=== PATIENT | male | born 1970 | race Caucasian/White ===

== ENCOUNTER 2025-07-25 22:33 | Observation (INO) | payer BC, SELFPAY ==
[~2025-07-25] VITALS: Ht 175.3 cm; Wt 98.6 kg
[2025-07-25 23:16] LABS: BASO # 0.0 10^3/uL (0.0-0.2); BASO % 0.5 % (0.0-1.0); EOS # 0.3 10^3/uL (0.0-0.5); EOS % 3.8 % (0.0-3.0); LYMPH # 2.1 10^3/uL (1.5-5.0); LYMPH % 26.0 % (24.0-44.0); MONO # 0.7 10^3/uL (0.0-0.8); MONO % 9.0 % (2.0-8.0); NEUTROPHILS # 4.8 10^3/uL (1.5-8.5); NEUTROPHILS % 60.4 % (36.0-66.0); PLATELET COUNT, AUTOMATED 212 10^3/uL (150-450)
[2025-07-25 23:41] LABS: CK-MB VALUE MASS 2.7 NG/ML (<3.6)
[2025-07-25 23:43] LABS: CALCIUM LEVEL 9.0 MG/DL (8.5-10.1); CARBON DIOXIDE LEVEL 27.0 MMOL/L (20-31); CHLORIDE LEVEL 105.0 MMOL/L (98-107); CPK CREATINE PHOSPHOKINASE 156.0 U/L (46-171); CREATININE FOR GFR 1.15 MG/DL (0.70-1.30); GLOMERULAR FILTRATION RATE 75.6 (>56); MB/CK RELATIVE INDEX 1.73 (< OR =4); POTASSIUM SERUM 4.4 MMOL/L (3.5-5.1); SODIUM LEVEL 142.0 MMOL/L (136-145)
[2025-07-26 01:19] LABS: CK-MB VALUE MASS 2.5 NG/ML (<3.6)
[2025-07-26 01:20] LABS: CPK CREATINE PHOSPHOKINASE 142.0 U/L (46-171); MB/CK RELATIVE INDEX 1.76 (< OR =4)
[2025-07-26] MEDS: NS (Normal Saline) 0.9% 1,000 ML IV ONE (01:50)
[2025-07-26] MEDS ORDERED: ISOVUE-370 76% 100 ML VIAL As Ordered ONE (01:51)
[2025-07-26 02:12] LABS: MAGNESIUM LEVEL 2.2 MG/DL (1.8-2.4)
[2025-07-26 04:00] VITALS: TEMP 98.1
[2025-07-26] MEDS ORDERED: MAALOX 30 ML SUSP *UDC PO PRN (05:10)
[2025-07-26] MEDS ORDERED: MOM 30 ML SUSPENSION UDC PO PRN (05:10)
[2025-07-26] MEDS ORDERED: ACETAMINOPHEN 325 MG TAB PO PRN (05:10)
[2025-07-26] MEDS ORDERED: ROSU5TAB49 PO (05:45)
[2025-07-26] MEDS ORDERED: LISI20TA33 PO (05:45)
[2025-07-26] MEDS ORDERED: HOME MED LIST COMPLETE! XX SCH (05:50)
[2025-07-26 06:45] VITALS: BP 102/58; O2SAT 95
[2025-07-26] MEDS ORDERED: DOCUSATE SODIUM 100 MG CAPSULE PO SCH (09:00)
[2025-07-26 10:35] LABS: BASO # 0.0 10^3/uL (0.0-0.2); BASO % 0.4 % (0.0-1.0); EOS # 0.2 10^3/uL (0.0-0.5); EOS % 2.2 % (0.0-3.0); LYMPH # 1.3 10^3/uL (1.5-5.0); LYMPH % 19.0 % (24.0-44.0); MONO # 0.6 10^3/uL (0.0-0.8); MONO % 8.7 % (2.0-8.0); NEUTROPHILS # 4.7 10^3/uL (1.5-8.5); NEUTROPHILS % 69.6 % (36.0-66.0); PLATELET COUNT, AUTOMATED 213 10^3/uL (150-450)
[2025-07-26 10:47] LABS: INR 0.96
[2025-07-26 10:55] LABS: ALT/SGPT 19 U/L (7.0-40); AST/SGOT 17 U/L (<34); CALCIUM LEVEL 9.1 MG/DL (8.5-10.1); CARBON DIOXIDE LEVEL 25 MMOL/L (20-31); CHLORIDE LEVEL 108 MMOL/L (98-107); CREATININE FOR GFR 0.86 MG/DL (0.70-1.30); GLOMERULAR FILTRATION RATE > 90.0 (>56); MAGNESIUM LEVEL 2.2 MG/DL (1.8-2.4); POTASSIUM SERUM 4.5 MMOL/L (3.5-5.1); SODIUM LEVEL 142 MMOL/L (136-145)
[2025-07-26 10:57] LABS: FREE T4 1.23 NG/DL (0.89-1.76); THYROXINE (T4) 6.6 UG/DL (4.5-10.9)
[2025-07-26] MEDS ORDERED: ROSUVASTATIN 10 MG TAB PO SCH (21:00)
== END 2025-07-26 12:45 | disposition home or self-care (01) ==
LOC: M ED 22:33 → M ED INP 22:34 → INTOOBSV 22:34 → UNDODISIN 07-26 12:45
PROVIDERS: ADMIT Student in an Organized Health Care Education/Training Program; ATTEND Student in an Organized Health Care Education/Training Program
DX: R55 Syncope and collapse (principal); I10 Essential (primary) hypertension; E78.5 Hyperlipidemia, unspecified; M25.78 Osteophyte, vertebrae; M50.322 Other cervical disc degeneration at C5-C6 level; Z98.1 Arthrodesis status; Z98.890 Other specified postprocedural states; Z87.891 Personal history of nicotine dependence; Z82.3 Family history of stroke; Z79.899 Other long term (current) drug therapy
CPT/HCPCS: 36415; 70450; 71045; 71275; 72125; 80048; 80053; 82550; 82553; 83735; 84436; 84439; 84443; 84484; 85025; 85610; 85730; 93005; 93041; 93306; 94760; 97161; 99285; Q9967

== ENCOUNTER → 2025-07-26 | Outpatient (CLI) | payer BC ==
[~2025-07-26] MED LIST: LISI20TA33 PO; ROSU5TAB49 PO
== END ==
LOC: M EKG 13:00
PROVIDERS: ATTEND Student in an Organized Health Care Education/Training Program
DX: R55 Syncope and collapse (principal)